=== PATIENT | female | born 1960 | race Caucasian/White ===

== ENCOUNTER 2019-03-15 10:26 | Emergency (ER) | payer BC, SELFPAY ==
[2019-03-15 10:37] VITALS: BP 136/64; PULSE 77; RESP 22; TEMP 37.1; O2SAT 100; BMI 23.3
--- NOTE | 2019-03-15 10:46 | CT_ITS ---
PROCEDURE: CT ABDOMEN PELVIS WO CON CLINICAL HISTORY: R/O KIDNEY STONE COMPARISON: No exams were available for comparison TECHNIQUE: Axial images obtained with sagittal and coronal reformats. All CT scans at the facility use one or more dose reduction, viz: automated exposure control, ma/kV adjustment per patient size (including targeted exams where dose is matched to indication, i.e. head), or iterative reconstruction technique. FINDINGS: Liver is normal. There is a 12 millimeter ring calcification in the lumen of the gallbladder without gallbladder wall thickening and there is no pericholecystic fluid or biliary dilatation. Pancreas could, spleen and adrenal glands are normal. Left kidney and visualized portions of the left ureter appear normal. Right kidney shows mild hydronephrosis with a 11 millimeter stone in the lower pole clara. There is right hydroureter secondary to a 5.4 millimeter stone at the UVJ, almost in the lumen of the urinary bladder. Aorta is unremarkable. There is no abnormal adenopathy. GI tract is unremarkable. Uterus is not visualized. There is no acute osseous process. IMPRESSION: 5.4 millimeter obstructing stone right UVJ almost in the lumen of the urinary bladder. Right renal stone. Uncomplicated cholelithiasis. Hysterectomy. Dictated by: Ajay Sheets 03/15/2019 11:40 Electronically signed by Ajay Sheets in [facility] 03/15/2019 11:40
[2019-03-15 10:58] LABS: Basophils % 0.3 % (0.1-2.0); Eosinophils # 0.1 K/mm3 (0.0-0.4); Eosinophils % 0.5 % (0.1-12.0); Hematocrit 45.8 % (37.0-47.0); Hemoglobin 14.8 g/dL (12.2-16.2); Lymphocytes # 1.8 K/mm3 (0.7-4.5); Lymphocytes % 18.4 % (10-50); Mean Corpuscular HGB Conc 32.3 g/dL (31.8-35.4); Mean Corpuscular Hemoglobin 32.7 pg (27.0-31.2); Mean Corpuscular Volume 101.1 fl (81-99); Mean Platelet Volume 7.5 fl (7.4-10.4); Monocytes # 0.4 K/mm3 (0.1-1.0); Monocytes % 3.7 % (1.7-9.3); Neutrophils # 7.6 K/mm3 (1.8-7.8); Neutrophils % 77.1 % (37.0-80.0); Platelet Count 302 K/mm3 (142-424); Red Blood Count 4.53 M/mm3 (4.20-5.40); Red Cell Distribution Width 12.6 % (11.5-17.5); White Blood Count 9.9 K/mm3 (4.8-10.8)
[2019-03-15 10:59] LABS: Microscopic, Urine URINE MICROSCOPIC (MICROSCOPIC)
[2019-03-15 11:00] LABS: Appearance,Urine CLEAR (Clear); Bilirubin,Urine Negative (Negative); Blood, Urine 2+ (Negative); Color,Urine YELLOW (Yellow); Glucose,Urine (UA) Negative (Negative); Ketones,Urine 2+ (Negative); Leukocyte Esterase,Urine Negative (Negative); Nitrate,Urine Negative (Negative); Protein,Urine Negative (Negative); Specific Gravity, Urine 1.025 (1.005-1.030); Urobilinogen,Urine 0.2 EU/dl (0.2)
[2019-03-15 11:08] LABS: Bacteria,Urine 1+ /lpf; RBC,Urine Occasional #/hpf (0-3)
--- NOTE | 2019-03-15 11:08 | PC.NURSE ---
Lab at bedside
--- NOTE | 2019-03-15 11:15 | PC.NURSE ---
Pt to rad
[2019-03-15 11:37] LABS: Alanine Aminotransferase 15 U/L (12-78); Albumin Level 3.5 gm/dL (3.4-5.0); Albumin/Globulin Ratio 1.1 (1.1-1.8); Alkaline Phosphatase 61 U/L (46-116); Amylase 65 U/L (25-115); Anion Gap 14.7 mEq/L (5-15); Aspartate Amino Transferase 9 U/L (15-37); Bilirubin,Total 0.4 mg/dL (0.2-1.0); Blood Urea Nitrogen 13 mg/dL (7-18); Calcium 8.3 mg/dL (8.5-10.1); Carbon Dioxide 25 mmol/L (21.0-32.0); Chloride 105 mmol/L (98-107); Creatinine Clearance Estimated 79 mL/min (50-200); Creatinine,Serum 0.79 mg/dL (0.55-1.02); Estimated Glomerular Filt Rate 75 ml/min (>60); GFR (African American) 91 ML/MIN (>60); Globulin 3.1 gm/dl (1.3-3.2); Glucose 119 mg/dL (74-106); Lipase 68 u/L (73-393); Potassium 3.7 mmoL/L (3.5-5.1); Sodium 141 mmol/L (136-145); Total Protein,Serum 6.6 gm/dL (6.4-8.2)
--- NOTE | 2019-03-15 11:54 | HMH.EDGENADL ---
ED Disposition Clinical Impression: Ureterolithiasis Disposition: Home, Self-Care Condition on Discharge: Good Instructions: DI for Kidney Stones Additional Instructions: Follow-up with Dr. Mendiola the urologist on Monday. Return to the emergency department immediately if symptoms are worse. You have a 5.7 mm kidney stone on the right side in the ureter just about to go into the bladder. Prescriptions: Tamsulosin HCl [Flomax 0.4mg capsule] 0.4 mg PO HS 7 Days #7 cap Transmission Status: P[facility] to [facility] [place] [place] Nitrofurantoin Monohyd/M-Cryst [Macrobid 100 mg Capsule] 100 mg PO BID 7 Days #14 cap Transmission Status: Pending to [facility] [place], [place] Ketorolac Tromethamine [Toradol 10mg tablet] 10 mg PO Q6H PRN 5 Days #20 tab PRN Reason: Right kidney stone pain Transmission Status: Pending to [facility] [place] [place] Referrals: Waylon Ledesma MD [Primary Care Provider] - Time of Disposition: 12:09 - Critical Care Critical Care Time: No Attestation: On 03/15/19, the high probability of a clinically significant, sudden or life threatening deterioration of the following system(s) required my full and direct attention, intervention and personal management. The time I documented below is in addition to time spent performing reported procedures but includes the following listed in this critical care notation. Medical Decision Making - Medical Records Medical records reviewed: Yes: I reviewed the patient's medical records. - Juan Inquiry Pt receiving controlled substance: No Vital Signs: 03/15/19 10:37 Temperature 98.8 F Temperature Source Oral Pulse Rate [Right Radial] 77 Respiratory Rate 22 Blood Pressure [Right Arm] 136/64 Blood Pressure Mean [Right Arm] 88 Blood Pressure Source [Right Arm] Automatic Cuff Blood Pressure Position [Right Arm] Sitting 02 Sat by Pulse Oximetry 100 Oxygen Delivery Method Room Air - Lab Data Lab results reviewed: Yes: I reviewed the patient's lab results. Lab Results 03/15/19 10:46: WBC 9.9, RBC 4.53, Hgb 14.8, Hct 45.8, MCV 101.1 H, MCH 32.7 H, MCHC 32.3, RDW 12.6, Plt Count 302, MPV 7.5, Neut % (Auto) 77.1, Lymph % (Auto) 18.4, Weakley % (Auto) 3.7, Eos % (Auto) 0.5, Baso % (Auto) 0.3, Neut # (Auto) 7.6, Lymph # (Auto) 1.8, Weakley # (Auto) 0.4, Eos # (Auto) 0.1, Baso # (Auto) 0.0 03/15/19 10:55: Urine Color Yellow, Urine Appearance Clear, Urine pH 6.0, Ur Specific Granger 1.025, Urine Protein Negative, Urine Glucose (UA) Negative, Urine Ketones 2+, Urine Blood 2+, Urine Nitrate Negative, Urine Bilirubin Negative, Urine Urobilinogen 0.2, Ur Leukocyte Esterase Negative, Urine RBC Occasional, Urine WBC 5-10, Ur Squamous Epith Cells 5-10, Urine Bacteria 1+ 03/15/19 11:10: Sodium 141, Potassium 3.7, Chloride 105, Carbon Dioxide 25, Anion Gap 14.7, BUN 13, Creatinine 0.79, Estimated Creat Clear 79, Estimated GFR 75, Est GFR ( Amer) 91, Glucose 119 H, Calcium 8.3 L, Total Bilirubin 0.4, AST 9 L, ALT 15, Alkaline Phosphatase 61, Total Protein 6.6, Albumin 3.5, Globulin 3.1, Albumin/Globulin Ratio 1.1, Amylase 65, Lipase 68 L Result diagrams: 03/15/19 10:46 03/15/19 11:10 Orders (Tests/Meds): ED MEDICATIONS Discontinued Medications Generic Name Dose Route Start Last Admin Trade Name Mandy PRN Reason Stop Dose Admin Sodium Chloride 1,000 mls @ 999 mls/hr 03/15/19 10:46 03/15/19 10:55 Sod Chlor 0.9% 1000ml Bag IV 03/15/19 11:46 999 mls/hr .Q1H1M ONE Administration Ketorolac Tromethamine 30 mg 03/15/19 10:46 03/15/19 10:55 Toradol 30mg/Ml Vial IV 03/15/19 10:47 30 mg ONCE ONE Administration Ondansetron HCl 4 mg 03/15/19 10:46 03/15/19 10:55 Zofran 4mg/2ml Vial IV 03/15/19 10:47 4 mg ONCE ONE Administration - CT Data CT Scan: Abdomen, Pelvis Time Received: 12:[address] Reviewed: Yes: I have reviewed the patient's CT results, I have viewed the radiologist's interpre
[2019-03-15 12:53] VITALS: BP 131/73; PULSE 74; RESP 16; TEMP 37.1; O2SAT 99
== END 2019-03-15 13:00 | disposition home or self-care (01) ==
PROVIDERS: Emergency Provider Emergency Medicine; PCP Family Medicine
DX: N20.1 Calculus of ureter (principal); F17.210 Nicotine dependence, cigarettes, uncomplicated; G43.709 Chronic migraine without aura, not intractable, without status migrainosus
CPT/HCPCS: 74176; 80053; 81001; 82150; 83690; 85025; 96365; 96375; 99283; J2405

== ENCOUNTER → 2019-03-21 10:22 | Outpatient (CLI) | payer BC, SELFPAY ==
--- NOTE | 2019-03-21 10:28 | XR_ITS ---
PROCEDURE: XR KUB CLINICAL INDICATION: kidney stone Follow-up right sided kidney COMPARISON: CT ABDOMEN PELVIS WO CON from 03/15/2019 FINDINGS: There are multiple pelvic calcifications present consistent with phleboliths. There are 2 calcific densities at the region the right ureterovesical junction. One of these is felt to represent a residual distal ureteral stone measuring approximately 5 mm. 9 mm stone is once again noted in the lower pole of the right kidney. IMPRESSION: Right nephrolithiasis with suspected persistent right UVJ stone Dictated by: Amadou Parry MD 03/21/2019 12:35 Electronically signed by Amadou Parry MD in [place] 03/21/2019 12:35
== END ==
PROVIDERS: PCP Family Medicine; Visit Provider Urology
DX: N20.0 Calculus of kidney (principal)
CPT/HCPCS: 74018

== ENCOUNTER → 2019-03-27 15:52 | Outpatient (CLI) | payer BC, SELFPAY ==
--- NOTE | 2019-03-27 15:56 | XR_ITS ---
PROCEDURE: XR KUB CLINICAL INDICATION: STONES Renal stones COMPARISON: CT ABDOMEN PELVIS WO CON from 03/15/2019 XR KUB from 03/21/2019 FINDINGS: No change in the 10 mm stone overlying the mid polar region of the right kidney. Multiple pelvic calcifications are once again noted as previously described. One of these calcifications is in the right lower pelvic region and may represent a distal ureteral stone unchanged. IMPRESSION: Overall no change in right nephrolithiasis and possible 6 mm right UVJ stone Dictated by: Amadou Parry MD 03/27/2019 17:50 Electronically signed by Amadou Parry MD in [facility] 03/27/2019 17:50
== END ==
PROVIDERS: PCP Family Medicine; Visit Provider Urology
DX: N20.0 Calculus of kidney (principal)
CPT/HCPCS: 74018

== ENCOUNTER → 2019-04-12 14:55 | Outpatient (CLI) | payer BC, SELFPAY ==
--- NOTE | 2019-04-12 14:58 | XR_ITS ---
PROCEDURE: XR KUB CLINICAL INDICATION: urethel stone COMPARISON: None FINDINGS: Gas pattern-The bowel gas pattern is unremarkable. No obvious obstruction. Calcifications-there are multiple bilateral pelvic calcifications some of which do lie along the anticipated course of the distal ureters. CT would be useful to differentiate pelvic phleboliths from renal calculi if there is renal colic and high suspicion of renal calculus. Other calcifications likely vascular are also noted. Bones-No acute bony anomalies evident. IMPRESSION: Nonspecific bilateral pelvic calcifications. Dictated by: Tad Stanton 04/13/2019 10:40 Electronically signed by Tad Stanton in [facility] 04/13/2019 10:40
== END ==
PROVIDERS: PCP Family Medicine; Visit Provider Urology
DX: N21.1 Calculus in urethra (principal)
CPT/HCPCS: 74018

== ENCOUNTER 2020-11-09 19:31 | Emergency (ER) | payer BC, SELFPAY ==
[2020-11-09 19:33] VITALS: BP 148/80; PULSE 75; RESP 18; O2SAT 100; BMI 25.0
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
[2020-11-09 20:46] VITALS: BP 148/80; PULSE 75; RESP 18; TEMP 36.7; O2SAT 99
== END 2020-11-09 20:48 | disposition home or self-care (01) ==
PROVIDERS: Emergency Provider Nurse Practitioner Family; PCP Family Medicine
DX: Z20.822 Contact with and (suspected) exposure to COVID-19 (principal)
CPT/HCPCS: 99202; G0463; U0003

== ENCOUNTER 2021-12-29 16:46 | Emergency (ER) | payer OTHER, BC, SELFPAY ==
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
[2021-12-29 16:48] VITALS: BP 132/67; PULSE 73; RESP 16; TEMP 36.9; O2SAT 100; BMI 25.0
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
[2021-12-29 19:21] VITALS: BP 121/76; PULSE 79; RESP 18; TEMP 36.7; O2SAT 98
== END 2021-12-29 19:22 | disposition home or self-care (01) ==
PROVIDERS: Emergency Provider Emergency Medicine
DX: S39.012A Strain of muscle, fascia and tendon of lower back, initial encounter (principal); R50.9 Fever, unspecified; G43.909 Migraine, unspecified, not intractable, without status migrainosus; F17.210 Nicotine dependence, cigarettes, uncomplicated; Z79.1 Long term (current) use of non-steroidal anti-inflammatories (NSAID); Z79.890 Hormone replacement therapy; Z79.899 Other long term (current) drug therapy; V49.9XXA Car occupant (driver) (passenger) injured in unspecified traffic accident, initial encounter
CPT/HCPCS: 72100; 96372; 99284

== ENCOUNTER 2022-06-03 08:05 | Emergency (ER) | payer BC, SELFPAY ==
[2022-06-03 08:15] VITALS: BP 104/66; PULSE 86; RESP 20; TEMP 36.8; O2SAT 99; BMI 25.0
--- NOTE | 2022-06-03 08:25 | EXP.UTC ---
Discharge Plan Disposition Patient Disposition: Home, Self-Care Condition: Good Prescriptions Prescriptions: New methylprednisolone [Medrol (Buck)] 4 mg tablets,dose pack See Rx Instructions .Route .COMPLEX 6 Days Qty: 21 0RF Rx Instructions: taper pack; amoxicillin-pot clavulanate 875-125 mg Tablet 1 tab PO Q12H Qty: 20 0RF No Action estradiol 1 mg tablet 1 mg PO DAILY Qty: 30 11RF Rx Instructions: patient is to stop taking the Premarin, due to insurance not covering it and start the Estradiol sumatriptan-naproxen [Treximet] 85-500 mg tablet 1 tab PO Q2H PRN (Reason: migraine headache) Qty: 10 0RF Rx Instructions: do not exceed 2 doses per 24 hrs Referrals Follow up/Referrals: Waylon Ledesma MD [Primary Care Provider] - See instructions Activity Restrictions/Add. Instructions Additional Instructions/Restrictions: *Monitor Temp, Over the counter Motrin or Tylenol as directed/as needed Tylenol every 4 hours and Motrin every 6 hours (as long as your family doctor has told you that you can take it) for fever or pain. and straight to ER if unable to lower temp less than 101.0 after medication given *Warm salt water gargles may help to soothe the throat *Throat Lozenges? *Warm fluids like tea with honey may help to soothe the throat? *Sleep elevated *Humidifier/Vaporizer Your throat swab was sent for culture. Those results are typically sent to your primary care. Be sure to follow up in 2-3 days with your family doctor/primary care physician if no improvement so they can review those result and treat if necessary. If you don?t have a primary care doctor, I recommend you get one but in the mean time, you will have to return to a walk in clinic Follow up IMMEDIATELY for new or worsening symptoms or no Noticeable improvement over the next 48-72 hours. 911 for difficulty breathing or swallowing Clinical Impressions Clinical Impression: Sinusitis Instructions Patient Instructions: DI for Sinusitis, Sinusitis Discharge ED Provider: Lydia [place] [facility] [place] General Stated complaint: sore throat, diarrhea, headache Time Seen by Provider: 06/03/22 08:25 History of Present Illness Provider Complaint: Patient states that she was around someone that has strep throat States that she has been having sore throat, sinus pain and pressure, headache and a little diarrhea that has got worse since last Mon States that today her throat was hurting worse and she was having pressure behind her eyes and in her teeth so she came in Related Data Previous Rx's Medication Instructions Recorded sumatriptan 85 mg-naproxen 500 mg 1 tab PO Q2H PRN migraine headache 05/28/19 tablet (Treximet) #10 tabs estradiol 1 mg tablet 1 mg PO DAILY #30 tabs 05/05/22 amoxicillin 875 mg-potassium 1 tab PO Q12H #20 tabs 06/03/22 clavulanate 125 mg tablet methylprednisolone 4 mg tablets in See Rx Instructions .Route 06/03/22 a dose pack (Medrol (Buck)) .COMPLEX 6 days #21 tabs Allergies Allergy/AdvReac Type Severity Reaction Status Date / Time No Known Allergies Allergy Verified 06/03/22 08:36 [facility] Disclaimer: The information contained in this section may have been updated after the patient was seen, as this information can be updated by other users. Medical History (Updated 06/03/22 @ 08:39 by Lydia Hernandez APRN) Kidney stones Surgical History (Updated 05/05/22 @ 09:08 by Robyn Castellon MD) History of hysterectomy Hx of breast lump removal Family History (Updated 05/05/22 @ 08:37 by CANDACE Goyal) Other No significant family history Social History Smoking Status: Current every day smoker tobacco type: cigarettes packs per day: 1 alcohol intake: never substance use type: denies use current occupational status: employed Travel in the last 8 weeks: None ROS Obtained: Yes All
[2022-06-03 08:32] LABS: UTC Strep Screen (Rapid) Negative (Negative)
[2022-06-03 08:45] VITALS: BP 104/66; PULSE 86; RESP 20; TEMP 36.8; O2SAT 99
== END 2022-06-03 08:48 | disposition home or self-care (01) ==
PROVIDERS: Emergency Provider Nurse Practitioner; PCP Family Medicine
DX: J01.90 Acute sinusitis, unspecified (principal); R19.7 Diarrhea, unspecified; R07.0 Pain in throat; F17.210 Nicotine dependence, cigarettes, uncomplicated
CPT/HCPCS: 87880; 99212; 99214; G0463

== ENCOUNTER 2023-03-09 16:47 | Emergency (ER) | payer BC, SELFPAY ==
[2023-03-09 16:55] VITALS: BP 131/67; PULSE 76; RESP 20; TEMP 36.8; O2SAT 99; BMI 25.1
--- NOTE | 2023-03-09 16:59 | EXP.UTC ---
Discharge Plan Disposition Patient Disposition: Home, Self-Care Condition: Good Prescriptions Prescriptions: New benzonatate [benzonatate] 100 mg capsule 100 mg PO TIDP PRN (Reason: Cough) Qty: 30 0RF methylprednisolone 4 mg Tablets,Dose Pack 4 mg PO DIRECTED Qty: 21 0RF amoxicillin-pot clavulanate 875-125 mg Tablet 1 tab PO Q12H Qty: 20 0RF Referrals Follow up/Referrals: Joo Ledesma MD [Primary Care Provider] - See instructions Activity Restrictions/Add. Instructions Additional Instructions/Restrictions: Drink plenty of fluids. Take tylenol or ibuprofen for pain or fever. Take the medications as directed. Follow up with your regular doctor. GO TO THE ER FOR ANY WORSENING SYMPTOMS Don't start the oral steroids until tomorrow, since you had the shot here today. Clinical Impressions Clinical Impression: Otitis media Instructions Patient Instructions: Middle Ear Infection Discharge ED Provider: Abraham Pierce [facility] General Stated complaint: right side ear and face pain Time Seen by Provider: 03/09/23 16:59 History of Present Illness Provider Complaint: She states that for the past 5 days she has had right ear pain and sinus congestion. Related Data Previous Rx's Medication Instructions Recorded amoxicillin 875 mg-potassium 1 tab PO Q12H #20 tabs 03/09/23 clavulanate 125 mg tablet benzonatate 100 mg capsule 100 mg PO TIDP PRN Cough #30 caps 03/09/23 methylprednisolone 4 mg tablets in 4 mg PO DIRECTED #21 tabs 03/09/23 a dose pack Allergies Allergy/AdvReac Type Severity Reaction Status Date / Time No Known Allergies Allergy Verified 06/03/22 08:36 [facility] Disclaimer: The information contained in this section may have been updated after the patient was seen, as this information can be updated by other users. Medical History (Updated 03/09/23 @ 17:46 by Abraham Pierce APRN) Kidney stones Migraine Surgical History (Updated 03/09/23 @ 17:12 by Sonya Talamantes RN) History of hysterectomy History of tubal ligation Hx of breast lump removal Family History (Updated 05/05/22 @ 08:37 by CANDACE Goyal) Other No significant family history Social History Smoking Status: Current every day smoker tobacco type: cigarettes packs per day: 1 alcohol intake: never substance use type: denies use current occupational status: employed Travel in the last 8 weeks: None ROS Obtained: Yes All systems reviewed & no additional complaints except as documented Constitutional Constitutional: Denies chills, Reports fever(s) and Reports poor appetite Eyes Eyes: Denies eye discharge ENT Ears, Nose, Mouth, and Throat: Denies ear discharge, Reports otalgia, Denies hearing loss, Denies sinus pain and Reports sore throat Cardiovascular Cardiovascular: Denies chest pain and Denies dyspnea Respiratory Respiratory: Denies chest congestion, Reports cough and Denies dyspnea Gastrointestinal Gastrointestingal: Denies abdominal pain, diarrhea, nausea or vomiting Musculoskeletal Musculoskeletal: Denies arthralgias Integumentary/Breasts Skin/Breast: Denies rash Physical Exam General General appearance: alert and in no apparent distress Head Head exam: atraumatic, normocephalic and normal inspection Eye Eye exam: Present normal appearance; Absent PERRL or EOMI ENT ENT exam: Present mucous membranes moist and normal external ear exam Expanded ENT Exam TM/Canal exam: Bilateral TM: erythema, bulging and effusion Nose exam: Absent sinus tenderness Nasal speculum exam: Bilateral: normal Mouth exam: Present normal external inspection and other; Absent drooling Teeth exam: Present normal inspection Throat exam: Present tonsillar erythema and tonsillomegaly Neck Neck exam: Present normal inspection, full ROM and trachea midline; Absent tenderness, meningismus or lymphadenopathy Chest Chest ins
[2023-03-09 17:47] VITALS: BP 131/67; PULSE 76; RESP 20; TEMP 36.8; O2SAT 99
== END 2023-03-09 17:50 | disposition home or self-care (01) ==
PROVIDERS: Emergency Provider Nurse Practitioner Family; PCP Psychiatry & Neurology Sleep Medicine
DX: H66.93 Otitis media, unspecified, bilateral (principal); R09.81 Nasal congestion; R50.9 Fever, unspecified; R07.0 Pain in throat; R05.9 Cough, unspecified; F17.210 Nicotine dependence, cigarettes, uncomplicated
CPT/HCPCS: 96372; 99212; 99214; G0463

== ENCOUNTER 2023-06-30 09:00 | Outpatient (CLI) | payer BC, SELFPAY ==
--- NOTE | 2023-06-30 09:08 | XR_ITS ---
FINAL REPORT CLINICAL HISTORY: dexa scan screening FINDINGS: Using L1-4, the bone mineral density of the spine is 0.990 g/cm2, corresponding to T-score of -0.5. Using the left hip, the bone mineral density of the femoral neck is 0.819 g/cm2, corresponding to a T-score of -1.0. Using the right hip, the bone mineral density of the femoral neck is 0.712 g/cm2, corresponding to a T-score of -1.2. NOTE: T-score: Standard deviation compared with peak bone mass of young adult mean. *Following the recommendations of the International Society of Bone densitometry, classification of hip BMD is based on the lower of two T-scores; total hip or femoral neck. IMPRESSION: Diminished bone mineral density consistent with low bone density. FRAX data reports fracture risk of 7.7% for major osteoporotic fracture and 0.9% for hip fracture. Reviewed, Interpreted and Dictated by Neftali Smith III, MD Transcribed by Kiarra Leon Authenticated and [facility]
== END 2023-06-30 23:59 | disposition home or self-care (01) ==
LOC: RAD 09:01
PROVIDERS: PCP Family Medicine; Visit Provider Obstetrics & Gynecology
DX: N95.1 Menopausal and female climacteric states (principal); Z90.710 Acquired absence of both cervix and uterus
CPT/HCPCS: 77080